=== PATIENT | female | born 1970 | race Caucasian/White ===

== ENCOUNTER → 2018-06-22 07:58 | Outpatient (CLI) | payer BC, SELFPAY ==
--- NOTE | 2018-06-22 15:01 | NEURO ---
NCS and/or EMG Patient Report Ordering Doctor: Sal Mariscal DATE OF SERVICE: 06/22/18 Cait Coe is a 48-year-old female presents for electrodiagnostic testing of the upper limbs. She reports numbness and tingling in both hands. Electrodiagnostic findings. Median motor nerve demonstrates prolonged distal latency bilaterally with normal amplitude and reduced conduction velocity. Normal ulnar motor response bilaterally. Prolonged median sensory latency at the wrist bilaterally. Prolonged median palmar response bilaterally. Needle EMG testing shows no evidence of denervation in muscles tested in the upper limbs. Electrodiagnostic impression: This is an abnormal study in the upper limbs 1. Electrodiagnostic findings demonstrate bilateral median mononeuropathy. This is consistent with a moderate carpal tunnel syndrome bilaterally. If there are any further questions, please do not hesitate to contact me
== END ==
PROVIDERS: Family Provider Student in an Organized Health Care Education/Training Program; PCP Student in an Organized Health Care Education/Training Program; Referring Provider Student in an Organized Health Care Education/Training Program; Visit Provider Student in an Organized Health Care Education/Training Program
DX: R20.2 Paresthesia of skin (principal)
CPT/HCPCS: 95886; 95912

== ENCOUNTER → 2019-06-02 14:37 | Outpatient (CLI) | payer BC, SELFPAY ==
--- NOTE | 2019-06-02 14:41 | CT_ITS ---
STUDY: CT MAXILLOFACIAL SINUSES REASON FOR EXAM: Female, 49 years old. Chronic sinusitis. RADIATION DOSAGE (If Supplied By Facility): CTDIvol = ( 33.45 ) mGy, DLP = ( 818.18 ) mGycm TECHNIQUE: The patient was scanned in a multi detector CT scanner. High resolution axial imaging was performed without the administration of intravenous contrast material. Sagittal and coronal images were reconstructed. Individualized dose optimization techniques were used for this CT. COMPARISON: None. FINDINGS: FRONTAL SINUSES: Normal aeration, without mucosal inflammatory disease. ETHMOIDAL SINUSES: Normal aeration, without mucosal inflammatory disease. MAXILLARY SINUSES: Normal aeration, without mucosal inflammatory disease. SPHENOIDAL SINUSES: Normal aeration, without mucosal inflammatory disease. There is patency of the bilateral maxillary infundibuli with normal uncinate processes, ethmoid bullae, and hiatus semilunaris. Normal bilateral middle turbinates. Normal bilateral inferior turbinates. Normal midline nasal septum. There is patency of the bilateral nasal airways. Degenerative disease of the cervical spine noted. The visualized bilateral orbital contents are normal. There is evidence of multiple prominent lymph nodes along the posterior cervical chain and submandibular region most compatible with nonspecific inflammatory response. CT/Sinus/Facial Bone IMPRESSION: Mild prominence of the lymph nodes as described above and most commonly associated with nonspecific inflammatory response. Otherwise normal CT examination of the maxillofacial sinuses. Electronically Signed: Nellie Horne MD at 7:54 EST , Service support ,
== END ==
PROVIDERS: Family Provider Student in an Organized Health Care Education/Training Program; PCP Student in an Organized Health Care Education/Training Program; Referring Provider Otolaryngology; Visit Provider Otolaryngology
DX: J32.9 Chronic sinusitis, unspecified (principal)
CPT/HCPCS: 70486

== ENCOUNTER → 2020-04-19 | Outpatient (CLI) | payer BC, SELFPAY ==
--- NOTE | 2020-04-19 16:00 | MRI_ITS ---
STUDY: MRI BRAIN WITH AND WITHOUT CONTRAST (ATTENTION INTERNAL AUDITORY CANALS - I.A.C.''s) REASON FOR EXAM: Female, 50 years old. bilateral tinnitus x 1 year TECHNIQUE: Standardized multiplanar fat and water weighted pulse sequences were obtained. 24ml Dotarem via IV was administered for the contrast portion of the examination. n COMPARISON: None. FINDINGS: Normal bilateral temporal bones. Normal bilateral internal auditory canals. There is no demonstrated intracanalicular or cisternal vestibular schwannoma (acoustic neuroma). There is no enhancement of the bilateral VIIth or VIIIth cranial nerves. Normal bilateral cochlea, vestibules and semicircular canals. Normal size of the ventricles and extra-axial spaces for the patient''s age. Normal white matter tracts of the supratentorial brain. Normal bilateral basal ganglia. Normal thalami. Normal flow voids within the major intracranial circulation suggesting patency by spin echo criteria. Normal venous enhancement. There is no enhancing intra-axial or extra-axial abnormality. There is no extra-axial fluid accumulation. Normal sella turcica, pituitary gland, infundibular stalk, optic chiasm and hypothalamus. Normal tectal plate and pineal gland. Normal midbrain, rajesh and medulla. Normal cerebellum. Normal basal cisterns. No demonstrated orbital abnormality, within the constraints of a routine brain study. Normal visualized paranasal sinuses. Normal calvarium and skull base. Normal visualized soft tissue structures. Normal visualized upper cervical spine. MRI/Brain W/WO Contrast IMPRESSION: Normal unenhanced and enhanced MRI of the bilateral internal auditory canals (I.A.C''s). Electronically Signed: Tahir Kennedy MD at 23:34 EDT Tel , Service support ,
== END | disposition home or self-care (01) ==
LOC: MRI 15:20
PROVIDERS: PCP Student in an Organized Health Care Education/Training Program; Referring Provider Otolaryngology; Visit Provider Otolaryngology
DX: H93.13 Tinnitus, bilateral (principal)
CPT/HCPCS: 70553

== ENCOUNTER 2020-11-18 09:27 | Outpatient (RCR) | payer BC, SELFPAY ==
--- NOTE | 2020-11-18 10:25 | HP.PTEVAL_ITS ---
Patient's Visit Information NAN LOERA is a 50 year old F referred to Physical Therapy by ROHAN ANDERSON with a diagnosis of BPPV. Date of Evaluation: 11/18/20 Physical Therapist: Lester Hernandez, DIYAT, OCS, CSCS - Visit Plan Frequency: 1x/Week Duration: 4-6 Weeks Plan: weekly progressions of adaptationa nd habituation ex. VOR horiz and vert given today seated 60 sec 5 x/day with ful recovery - Subjective Has had 5 weeks of lightheaded and dizzyness. Continuous at first. Not sure how it started. Started on first Wednesday in October getting up out of bed(was there a little when went to bed). Went to work and had to leave due to dizzyness. Went to doctor where they did positional tests which pt says were positive. Got medicine for dizzyness but it makes her tired. Also got patches. Now comes and goes. happens at times when watching TV. Doing chores around the house can make her dizzy. Walking in stre has to hang on at times. Getting up from bending over will make her lightheaded. Not as bad when lying down(sleeps on stomach.) Head to right is worse though in bed. Lately it comes and goes. not sure how long it lasts. Also has ringing in ear. Works at [employer] is off on medical leave for 5 weeks. Off until released by doctor. Sleep is not great normally and still about the same. Hobbies include crafting or Tv. Have been able to do crafts recently. Needs to lie down at times. Basic ADLs and food prep is fine, may have to wait if gets lightheaded. No falls or balance problems. - Objective Walks I transfers I, steps I without rail ascend and needs rail descend due to knee. Balance is good but worse when head is moving. - B halpike cameron. - roll test. Oculomotor: no nystagmus with gaze or head shake. - skew eye deviation. - ocular tilt. Slight + L head thrust. pursuit adn saccades are normal. VOR horiz and vert 30 seconds gives 5-6/10 dizzyness for <1 minute. Pt obviously more sweaty and uncomfortable today in busy visual environment of gyma dn when head moving. MSQ: up from HD gives slight dizzyness. head nods and turns give slight increase dizzyness. 180 degree turns make dizzy. Others not bad. - Balance Scores Functional Gait Assessment Score: 25 % Disability: 16.6700 - Goals Goal 1:: 30/30 FGA Goal Time Frame: 4-6 Weeks Goal 2:: Pt feel 90% better with dizzyness Goal Time Frame: 4-6 Weeks Goal 3:: Pt ready to return to work. Goal Time Frame: 4-6 Weeks Goal 4:: DHI 10 or less. Goal Time Frame: 4-6 Weeks - Rehabilitation Potential Physical Therapy Diagnosis: Likely unilateral vestibualr hypofunction making activities challenging. Rehabilitation Potential: Fair - Anticipated Interventions Patient/Client Instruction: Educate patient on: Condition, Plan of Care For the Purpose of:: To increase tolerance to activity/condition/position, To improve ability of physical actions for home/community/work/leisure, To improve gait and locomotor functions Comment: adaptation adn habituation ex For the Purpose of:: To increase tolerance to activity/condition/position, To improve ability of physical actions for home/community/work/leisure, To improve gait and locomotor functions Thank you for the opportunity to evaluate your patient. For Medicare and Medicare HMO plans, please review the plan of care and approve it. It will need to be FAXED BACK to us at [phone] for Medicare purposes. For Medicare only, by signing this I certify the plan of care. Please let me know if there are questions or concerns regarding this plan of care. Physician Sign ature: Date:
--- NOTE | 2020-12-02 08:22 | HP.PT.NRP ---
NAN LOERA was seen in my office for initial evaluation on 11/18/20. The following Plan of Care was established for this patient: Initial Frequency: 1x/Week Initial Duration: 4-6 Weeks Patient/Client Instruction: Educate patient on: Condition, Plan of Care For the Purpose of:: To increase tolerance to activity/condition/position, To improve ability of physical actions for home/community/work/leisure, To improve gait and locomotor functions For the Purpose of:: To increase tolerance to activity/condition/position, To improve ability of physical actions for home/community/work/leisure, To improve gait and locomotor functions This patient was last seen in our office 11/18/20. Pertinent comments regarding their Physical therapy will appear below: Pt seen for intiial evaluation adn POC established. she cancelled the rest of her visits without reason but stating she would not be rescheduling. I will discontinue at this time due to nonattendance. At this point I will be discontinuing this patient from physical therapy. I would be happy to see this patient again in the future if found appropriate by the physician. Thank you! Lester Hernandez, DPT, OCS, CSCS
== END 2020-11-18 19:00 | disposition home or self-care (01) ==
LOC: PT 09:27
PROVIDERS: PCP Student in an Organized Health Care Education/Training Program
DX: H81.10 Benign paroxysmal vertigo, unspecified ear (principal)
CPT/HCPCS: 97110; 97162

== ENCOUNTER → 2021-07-17 15:52 | Outpatient (CLI) | payer BC, SELFPAY ==
--- NOTE | 2021-07-17 15:56 | CT_ITS ---
STUDY: CT ABDOMEN AND PELVIS WITH AND WITHOUT CONTRAST REASON FOR EXAM: Female, 51 years old. HEMATURIA RADIATION DOSAGE (If Supplied By Facility): CTDIvol = ( 27.24 ) mGy, DLP = ( 4444.29 ) mGycm TECHNIQUE: Transaxial images were obtained from the dome of the diaphragm to the symphysis pubis without oral contrast. IV 100mL Isovue-300 was administered. Sagittal and coronal images were reconstructed. Individualized dose optimization techniques were used for this CT. COMPARISON: None. FINDINGS: The visualized lung bases are unremarkable. The visualized portions of the heart are within normal limits. Normal liver. Normal gallbladder and extrahepatic biliary system. Normal spleen. Normal pancreas. Normal bilateral adrenal glands. Normal right kidney. Normal left kidney. Normal visualized stomach. Normal small intestine. Normal colon. The appendix is visualized and appears normal. Normal abdominal aorta. Normal inferior vena cava. Normal retroperitoneum. Normal urinary bladder. Normal abdominal wall. Normal osseous structures. CT/CT Abd/Pelvis W/WO Contrast IMPRESSION: No CT evident etiology of hematuria. Electronically Signed: Tim Santos MD at 12:21 EST Tel , Service support ,
== END ==
PROVIDERS: PCP Student in an Organized Health Care Education/Training Program; Visit Provider Urology
DX: R31.9 Hematuria, unspecified (principal)
CPT/HCPCS: 74178; Q9967; A4216

== ENCOUNTER 2021-07-22 09:47 | Outpatient (CLI) | payer BC, SELFPAY ==
--- NOTE | 2021-07-22 09:51 | RAD_ITS ---
INDICATION: PAIN EXAMINATION/TECHNIQUE: X-RAY - XR Pelvis 1 or 2 Views COMPARISON: None. FINDINGS: PELVIC BONES: No displaced fracture, destructive or sclerotic lesions. Note that overlapping bowel shadows may however obscure fine detail. There are some degenerative changes of the sacroiliac joints evidenced by subchondral sclerosis and mild vacuum disc phenomenon. No widening of the pubic symphysis. There are degenerative changes lower lumbar spine. HIPS: The articular structures are unremarkable. No displaced fracture seen in this frontal view. SOFT TISSUES: No soft tissue swelling or gas. RAD/Pelvis 1 or 2 Views IMPRESSION: Degenerative changes sacroiliac joints. Electronically Signed: Fritz Gooden DO at 0:02 EST Tel , Service support ,
[2021-07-22 12:42] LABS: Erythrocyte Sedimentation Rate 28 mm/hr (0-30)
[2021-07-22 12:44] LABS: Absolute Lymphocyte Count 1.89 X10^3/uL (0.83-4.51); Basophil# 0.06 X10^3/uL; Basophil% 1.1 % (0-1); Eosinophil# 0.19 X10^3/uL; Eosinophils% 3.4 % (0-5); Hemoglobin 13.5 g/dL (12.0-15.0); Lymphocyte # 1.89 X10^3/ul (0.83-4.51); Lymphocyte % 34.2 % (19-41); Mean Corp Hgb Conc 33.8 g/dL (32-36); Mean Corpuscular Hgb 30.2 pg (27.0-32.0); Mean Corpuscular Volume 89.5 fL (81-99); Mean Platelet Vol. 11.1 fl (6.2-12.0); Monocyte# 0.42 X10^3/uL; Monocyte% 7.6 % (0-10); NRBC Flagged by Analyzer 0 % (0-5); Neutrophil # 2.95 X10^3/uL (2.7-7.7); Neutrophil % 53.5 % (47-70); Platelet Count 333 K/mm3 (150-450); RBC Distribution Width SD 38.9 fl (35.1-43.9); Red Blood Count 4.47 M/mm3 (4.2-5.4); White Blood Count 5.5 K/mm3 (4.4-11.0)
[2021-07-22 13:00] LABS: ALB/GLOB Ratio 0.8 RATIO (0.9-2.4); AST(SGOT) 17 U/L (15-37); Alanine Aminotransfer ALT/SGPT 33 U/L (13-56); Albumin, Serum 3.5 g/dL (3.2-5.0); Alkaline Phosphatase 84 U/L (45-117); Anion Gap 8 (5-15); BUN 10 mg/dL (7-18); BUN/Creat Ratio 14.7 RATIO (10-20); Calcium,Total 9.2 mg/dL (8.5-10.1); Chloride 104 mmol/L (98-107); Creatinine, Serum 0.68 mg/dL (0.55-1.02); EST Glomerular Filtration Rate 97 mL/min (>60); Est Glom Filt Rate - Afr Amer 117 mL/min (>60); Globulin 4.4 g/dL (2.2-4.2); Glucose 86 mg/dL (74-106); Potassium 3.8 mmol/L (3.5-5.1); Protein, Total 7.9 g/dL (6.4-8.2); Rheumatoid Factor < 10.0 IU/mL (<15); Sodium Level 141 mmol/L (136-145)
[2021-07-22 13:29] LABS: Hepatitis B Surface Antibody Non-Reactive; Hepatitis B Surface Antigen Non-Reactive (Nonreactive); Hepatitis C Antibody Non-Reactive (Nonreactive)
[2021-07-23 13:45] LABS: ANTINUCLEAR ANTIBODIES DIRECT Negative (Negative)
[2021-07-29 17:18] LABS: CCP IgG Antibodies < 1 units (0-19); HLA B27 Negative (.)
== END 2021-07-22 23:59 | disposition short-term general hospital (02) ==
LOC: MTLAB 09:49
PROVIDERS: PCP Student in an Organized Health Care Education/Training Program; Referring Provider Internal Medicine Rheumatology; Visit Provider Internal Medicine Rheumatology
DX: M06.4 Inflammatory polyarthropathy (principal); M79.7 Fibromyalgia; Q66.70 Congenital pes cavus, unspecified foot; I10 Essential (primary) hypertension; E03.8 Other specified hypothyroidism; K21.9 Gastro-esophageal reflux disease without esophagitis; H93.13 Tinnitus, bilateral; L90.0 Lichen sclerosus et atrophicus; J30.9 Allergic rhinitis, unspecified
CPT/HCPCS: 36415; 72170; 80053; 81374; 85025; 85652; 86038; 86140; 86200; 86431; 86706; 86803; 87340

== ENCOUNTER 2023-05-12 15:00 | Outpatient (RCR) | payer BC, SELFPAY ==
--- NOTE | 2023-04-16 11:25 | HP.OTEVAL_ITS ---
Patient's Visit Information Visit Information Visit Information: NAN LOERA is a 53 year old F, referred to Occupational Therapy by Dr. Ashtyn Burgos DO, with a diagnosis of CTS. Date of Evaluation: 04/13/23 Occupational Therapist: ANU Bueno/Jerman, CHT Subjective Subjective: This 53 year old female was seen for OT eval with dx of bilateral CTR. pt states in October she had increase in tingling and numbness of bilateral hands. 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 pt states she works 10 hour shifts - 4 days a week with over time 4-10 hours. pt states she is wearing a wrist brace at night- pt states thumb brace while at work. Pain right thumb: Current Pain Intensity: 2 Pain Intensity Range: 3 ROM ROM Comments: ROM is WNL Strength Costumed Character Entertainer: right 85# left 85# Lateral Pinch: right 16# left 14# Tripod Pinch: right 18# left 14# Tip-to-Tip Pinch: right 14# left 14# Sensation Thumb: right/left 2.83 interpretation of normal sensation Index: right/left 2.83 interpretation of normal sensation Middle: right/left 2.83 interpretation of normal sensation Ring: right/left 2.83 interpretation of normal sensation Little: right/left 2.83 interpretation of normal sensation Special Tests Median Nerve Compression Test: positive Quick DASH-Disab of Arm,Shoulder& Hand Quick DASH Score: 41.6650 Carpal Tunnel Syndrome Total Score of Symptom & Functional Sections: 16 Goals Goal:: pt will demo understanding of ergonomic for wrist/ avoiding prolonged flexion/ext. positioning to decrease median nerve compression with daily tasks by d/c Pt will demo understanding of joint protection and ergonomics when performing BADLs and IADLs by d/c Pt will demo understanding of adaptive Equipment use to decrease stress on joints to allow pt to perform BADSL and IADLS at MIKA level. Goal:: pt will demo understanding of brace use to decrease symptoms of tingling by 70%. Rehabilitation General Assessment: pt demo with positive CTS and would benefit from skilled OT services 1-2x week for 4 weeks to decrease pts symptoms of tingling so she can return to her PLOF. Today therapist ed. pt on dx and conservative treatment - pt was ed. in median nerve glides and given handout- pt demo understanding and agree to POC. Rehabilitation Potential: Good Anticipated Interventions Anticipated Interventions: A/AAROM/PROM, Orthoses, Joint Protection/Energy Conservation, Education re Diagnosis and Home Program Visit Plan TEXT: Thank you for the opportunity to evaluate your patient. For Medicare and Medicare HMO plans, please review the plan of care and approve it. It will need to be FAXED BACK to us at [phone] for Medicare purposes. Please let me know if there are questions or concerns regarding this plan of care. Physician Signature: Date:
== END 2023-05-12 19:00 | disposition home or self-care (01) ==
LOC: OT 15:00
PROVIDERS: PCP Student in an Organized Health Care Education/Training Program; Referring Provider Orthopaedic Surgery; Visit Provider Orthopaedic Surgery
DX: G56.03 Carpal tunnel syndrome, bilateral upper limbs (principal)
CPT/HCPCS: 97035; 97110; 97140; 97166

== ENCOUNTER 2024-03-16 10:30 | Outpatient (RCR) | payer BC, SELFPAY ==
--- NOTE | 2024-02-09 11:12 | HP.OTEVAL_ITS ---
Patient's Visit Information Visit Information Visit Information: NAN LOERA is a 53 year old F, referred to Occupational Therapy by Dr. Ashtyn Burgos DO, with a diagnosis of norm carpal tunnel syn. Date of Evaluation: 02/08/24 Occupational Therapist: Kristen Lewis, ANU/Jerman, CHT Subjective Subjective: This 53 year old female arrives with dx of norm carpal tunnel. Pt having symptoms for more than 5 years and then had surgery L 01/04/24 and R 11/23/23. Pt states numbness, tingling, achiness both sides- median nerve. Pt currently not working - on medical leave since surgery supposed to go back 02/23/24. 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 Experiencing stiffness in both hands, numbness in middle of night- wearing braces at night on and off and still waking up with numbness/tingling/pain. Not feeling a difference between wearing them vs not wearing them. Difficulty writing, opening up jars/containers, driving, yard work, weed eating, mowing lawn. Pt is currently doing median nerve glides and not using heat due to sensitivity from surgery. Seeing doctor . Pt wants to get back to using hand/wrist/arm normally again, decrease pain and numbness/tingling, and return to work/yard work/hobbies. Pain hands/wrist: Current Pain Intensity: 5 Pain Intensity Range: 5 and 10 ROM Forearm: L/R WNL Wrist: L 45/45 R 45/30 ROM Comments: noted slight hyper extension with elbows seated posture rolled shoulders and head forward Strength Levers Lace Machine Operator: L 60# R 60# Lateral Pinch: L 11# R 13# Tripod Pinch: L 11# R 11# Strength Comments: pt had scar pain with resistive voice network administrator testing Sensation Sensation Comments: monofilament test- 2.83 for all fingers L & R ( indication of normal sensation) Quick DASH-Disab of Arm,Shoulder& Hand Quick DASH Score: 25.0000 Goals Goal:Daily scar massage when approriate: Yes Comment: with reports of no pain greater than 2/10 with resistive testing Goal:No pain with affected hand use: Yes Goal:Full use of affected hand in daily activities including work: Yes Goal:Decrease scar hypersensitivity: Yes Other Goal: Pt will demo a increase in bilateral voice network administrator strength to 75# with pain no greater than 2/10 to return pt to her PLOF by d/c. pt will demo proper postural control seated/ position to decrease rolled shoulders/ head forward position- throughout therapy session 50% pt will demo understanding of brace use while sleeping to avoid prolonged end range wrist flex/ext by end of 3rd session. Pt will demonstrate understanding of joint protection and adaptive equipment to decrease joint stress while performing ADL tasks by d/c Rehabilitation General Assessment: This 53 year old female arrives with dx of norm carpal tunnel syn resulting in pain/numbness/tingling BUE, impairments in functional use of BUE and fine motor skills and strength impacting ability to perform daily functional tasks including writing, opening jars/containers, household/yard work tasks, and work tasks. Pt is recommended to complete OT 2x a week for 4 weeks to address above impairments. Therapy session was directly supervised and doc. reviewed by Kristen Lewis OTR/L,CHT. Rehabilitation Potential: Good Anticipated Interventions Anticipated Interventions: A/AAROM/PROM, Strengthening, Scar Care, Triggerpoint Release, Desensitization, Sensory Retraining, Modalities, Orthoses, Joint Protection/Energy Conservation, Ergonomic Education, Education re assistive Equipment, Education re Diagnosis, Home Program and Other Other Interventions: postural strength/training Visit Plan Frequency: 2x /Week Duration: 4 Weeks General Plan: ed. on dx scar desensitization/ sensory re-ed. postural correction strength TEXT: Thank you for the opportunity to evaluate your patient. For Medicare and Medicare HMO plans, please review the plan of care and approve it. It will need to be FAXED BACK to us at [phone] for Medicare purposes. Please let me know if there are questions or concerns regarding this plan of care. Physician Signature: Date:
--- NOTE | 2024-03-17 08:47 | HP.OTDCSUM ---
Discharge Summary D/C Summary: It has been my pleasure to treat NAN LOERA under orders from Dr. Ashtyn Burgos DO, for the diagnosis of norm carpal tunnel syn for a total of 6 visit(s). Please see the following information for a summary of their discharge status. Overall Improvement % Improvement: 0 Objective Objective/Function: business relationship manager strength L 55# R 45# pt reports she continues to have tingling and numbness - feels conservative methods have not made sig. improvements in her symptoms. Pt agrees to D/C and will see for possible sx. Goals Patient Goals: Regain Strength, Decrease Pain, Return to Work, Decrease Swelling/Stiffness, Improve Fine Motor Skills, Use Hand/Wrist/Arm Normally Again, Sleep Better, Decrease Tingling/Numbness, Increase ROM, Resume Former Household Responsibilities (Cooking,Cleaning,Yard, etc.) and Resume Hobbies Goal:Daily scar massage when approriate: Yes Goal:Solar Energy System Installer Helper/Pinch strength at least 75% of unaffected hand: Yes Goal:No pain with affected hand use: Yes Goal:Full use of affected hand in daily activities including work: Yes Goal:Decrease scar hypersensitivity: Yes Other Goal: Pt will demo a increase in bilateral business relationship manager strength to 75# with pain no greater than 2/10 to return pt to her PLOF by d/c. pt will demo proper postural control seated/ position to decrease rolled shoulders/ head forward position- throughout therapy session 50% pt will demo understanding of brace use while sleeping to avoid prolonged end range wrist flex/ext by end of 3rd session. Pt will demonstrate understanding of joint protection and adaptive equipment to decrease joint stress while performing ADL tasks by d/c D/C Information Discharge Comments: pt to be discharged at this time due to plateau in progression with goals. pt is planning to see doctor for reevaluation of R hand and possible surgery. pt to continue with HEP and agrees to POC. d/c sentence: If there are questions or concerns regarding this patient's occupational therapy, please fell free to call me at [phone]. Thank you for the referral of this patient. Sincerely, Kristen Lewis, OTR/L, CHT
== END 2024-03-16 19:00 | disposition home or self-care (01) ==
LOC: OT 10:30
PROVIDERS: PCP Student in an Organized Health Care Education/Training Program; Referring Provider Orthopaedic Surgery; Visit Provider Orthopaedic Surgery
DX: G56.03 Carpal tunnel syndrome, bilateral upper limbs (principal)
CPT/HCPCS: 97035; 97110; 97140; 97165